=== PATIENT | male | born 1995 | race African-American/Black ===

== ENCOUNTER 2017-10-02 01:42 | Inpatient (IN) | payer OTHER ==
[~2017-10-02] VITALS: Ht 190.5 cm; Wt 79.5 kg
[2017-10-02 02:20] LABS: HEMATOCRIT 41.3 % (38.0-50.0); HEMOGLOBIN 14.3 G/DL (12.5-16.6); MCH 29.5 PG (29.0-34.0); MCHC 34.6 G/DL (30.0-36.0); MCV 85.2 FL (86-99); PLATELET COUNT 299 K/uL (156-360); RBC DIS.WIDTH-CV 16.2 % (11.8-14.6); RED BLOOD COUNT 4.85 M/uL (4.00-5.50); WHITE BLOOD COUNT 4.8 K/uL (4.1-10.2)
[2017-10-02 02:59] LABS: CHLORIDE 102 mEq/L (99-109); POTASSIUM 3.8 mEq/L (3.7-5.4); SODIUM 141 mEq/L (136-147)
[2017-10-02 03:01] LABS: GLUCOSE 75 mg/dL (70-99)
[2017-10-02 03:04] LABS: SERUM ETHYL ALCOHOL 185 mg/dL
[2017-10-02 03:05] LABS: CREATININE 1.1 mg/dL (0.6-1.3); GFR ESTIMATE (CALCULATED) > 59 mL/min/ (58.99-99999)
[2017-10-02 03:06] LABS: UREA NITROGEN (BUN) 11 mg/dL (9-23)
[2017-10-02 03:17] LABS: APPEARANCE CLEAR ((CLEAR)); BILIRUBIN NEGATIVE; BLOOD NEGATIVE; COLOR YELLOW ((YELLOW)); GLUCOSE (STRIP) NEGATIVE; KETONES NEGATIVE; LEUKOCYTES NEGATIVE; NITRITE NEGATIVE; PROTEIN (STRIP) 30; UCUL ADDED? NO
[2017-10-02 03:25] LABS: AMPHETAMINE NEGATIVE (500 ng/mL); BARBITURATES NEGATIVE (200 ng/mL); BENZODIAZEPINES NEGATIVE (150 ng/mL); BUPRENORPHINE NEGATIVE (10 ng/mL); COCAINE NEGATIVE (150 ng/mL); METHADONE NEGATIVE (200 ng/mL); METHAMPHETAMINE NEGATIVE (500 ng/mL); OPIATES (MORPHINE) NEGATIVE (100 ng/mL); OXYCODONE NEGATIVE (100 ng/mL); PHENCYCLIDINE NEGATIVE (25 ng/mL); PROPOXYPHENE NEGATIVE (300 ng/mL); THC CANNABINOIDS NEGATIVE (50 ng/mL); TRICYCLIC ANTIDEPRESSANTS NEGATIVE (300 ng/mL)
[2017-10-02 10:45] VITALS: BP 137/67
[2017-10-02 10:54] VITALS: BP 137/76
[2017-10-02 16:07] VITALS: BP 160/78
[2017-10-02 18:25] VITALS: BP 133/87
[2017-10-03 03:15] VITALS: BP 123/57
[2017-10-03 08:01] VITALS: BP 130/73
[2017-10-03 16:50] VITALS: BP 128/78
[2017-10-04 07:50] VITALS: BP 126/86
[2017-10-04] MEDS ORDERED: Thiamine,Vitamin B1 PO (09:37)
[2017-10-04] MEDS ORDERED: HYDROXYZINE PAM50 MG PO (09:37)
[2017-10-04] MEDS ORDERED: SERTRALINE HCL50 MG PO (09:37)
[2017-10-04] MEDS ORDERED: TRAZODONE HCL50 MG PO (09:37)
[2017-10-04] MEDS ORDERED: FOLIC ACID1 MG PO (09:37)
[2017-10-04] MEDS ORDERED: PRAZOSIN HCL1 MG PO (09:37)
[2017-10-04] MEDS ORDERED: PRAZOSIN HCL2 MG PO (09:55)
== END 2017-10-04 12:47 | disposition home or self-care (01) | DRG 885 ==
LOC: EME 01:42 → 1WEST 08:52 → EDOF 08:52 → ENRESERV 10:30 → 1WEST 10:40
PROVIDERS: Emergency Medicine
DX: F33.2 Major depressive disorder, recurrent severe without psychotic features (principal); R45.851 Suicidal ideations; F43.12 Post-traumatic stress disorder, chronic; F10.229 Alcohol dependence with intoxication, unspecified; Y90.6 Blood alcohol level of 120-199 mg/100 ml; F51.5 Nightmare disorder; G47.00 Insomnia, unspecified; F41.9 Anxiety disorder, unspecified; Z56.0 Unemployment, unspecified; F17.210 Nicotine dependence, cigarettes, uncomplicated
CPT/HCPCS: 80048; 81003; 85027; 90837; 99281; 99285; G0480; Q0169; Q0177

== ENCOUNTER 2017-10-21 23:25 | Emergency (ER) | payer OTHER ==
[~2017-10-21] VITALS: Ht 193 cm; Wt 77.7 kg
[~2017-10-21 23:25] MED LIST: FOLIC ACID1 MG PO; HYDROXYZINE PAM50 MG PO; PRAZOSIN HCL1 MG PO; PRAZOSIN HCL2 MG PO; SERTRALINE HCL50 MG PO; TRAZODONE HCL50 MG PO; Thiamine,Vitamin B1 PO
[2017-10-22 00:07] LABS: HEMATOCRIT 42.9 % (38.0-50.0); HEMOGLOBIN 15.2 G/DL (12.5-16.6); MCH 29.7 PG (29.0-34.0); MCHC 35.4 G/DL (30.0-36.0); PLATELET COUNT 244 K/uL (156-360); RBC DIS.WIDTH-CV 14.3 % (11.8-14.6); RBC DIS.WIDTH-SD 43.5 % (39-53); RED BLOOD COUNT 5.11 M/uL (4.00-5.50); WHITE BLOOD COUNT 5.6 K/uL (4.1-10.2)
[2017-10-22 00:20] LABS: ALBUMIN 4.9 g/dL (3.2-4.8); CHLORIDE 97 mEq/L (99-109); POTASSIUM 3.6 mEq/L (3.7-5.4); SODIUM 137 mEq/L (136-147)
[2017-10-22 00:22] LABS: GLUCOSE 77 mg/dL (70-99); TOTAL PROTEIN 8.5 g/dL (6.4-8.3)
[2017-10-22 00:24] LABS: TOTAL BILIRUBIN 1.6 mg/dL (0.0-1.0)
[2017-10-22 00:25] LABS: SERUM ETHYL ALCOHOL 45 mg/dL
[2017-10-22 00:26] LABS: ALKALINE PHOSPHATASE 117 IU/L (3-129); CREATININE 1.1 mg/dL (0.6-1.3); GFR ESTIMATE (CALCULATED) > 59 mL/min/ (58.99-99999)
[2017-10-22 00:27] LABS: UREA NITROGEN (BUN) 9 mg/dL (9-23)
[2017-10-22 00:28] LABS: AST (GOT) 43 IU/L (2-34)
[2017-10-22 00:29] LABS: ALT (GPT) 20 IU/L (3-49); LIPASE 37 U/L (1.0-51.0)
[2017-10-22] MEDS ORDERED: ZOFRAN4 MG PO (01:29)
[2017-10-22] MEDS ORDERED: PEPCID20 MG PO (01:29)
[2017-10-22 01:50] VITALS: BP 127/98
== END 2017-10-22 02:00 | disposition home or self-care (01) ==
LOC: EME 23:25
PROVIDERS: Emergency Medicine
DX: K29.00 Acute gastritis without bleeding (principal); J02.9 Acute pharyngitis, unspecified
CPT/HCPCS: 80053; 83690; 85027; 87651 90; 99281; 99284; G0480

== ENCOUNTER 2018-04-17 09:37 | Emergency (ER) | payer OTHER ==
[~2018-04-17] VITALS: Ht 190.5 cm; Wt 80.0 kg
[~2018-04-17 09:37] MED LIST changes: +PEPCID20 MG PO; +ZOFRAN4 MG PO
[2018-04-17 10:44] LABS: APPEARANCE CLEAR ((CLEAR)); BILIRUBIN NEGATIVE; BLOOD SMALL; COLOR STRAW ((YELLOW)); GLUCOSE (STRIP) NEGATIVE; KETONES NEGATIVE; LEUKOCYTES NEGATIVE; NITRITE NEGATIVE; PROTEIN (STRIP) NEGATIVE; SPECIFIC GRAVITY 1.003 (1.000-1.030); UROBILINOGEN 0.2 MG/DL (0.2-1.0)
[2018-04-17 10:47] LABS: BACTERIA RARE /HPF; CALCIUM OXALATE CRYSTALS 1+ /HPF; EPITHELIAL CELLS RARE /HPF; MUCUS NONE SEEN /LPF; RED BLOOD CELLS 0-5 /HPF (0-5); UCUL ADDED? NO; WHITE BLOOD CELLS 0-5 /HPF (0-5)
[2018-04-17 10:54] LABS: AMPHETAMINE NEGATIVE (500 ng/mL); BARBITURATES NEGATIVE (200 ng/mL); BENZODIAZEPINES NEGATIVE (150 ng/mL); BUPRENORPHINE NEGATIVE (10 ng/mL); COCAINE NEGATIVE (150 ng/mL); METHADONE NEGATIVE (200 ng/mL); METHAMPHETAMINE NEGATIVE (500 ng/mL); OPIATES (MORPHINE) NEGATIVE (100 ng/mL); OXYCODONE NEGATIVE (100 ng/mL); PHENCYCLIDINE NEGATIVE (25 ng/mL); PROPOXYPHENE NEGATIVE (300 ng/mL); THC CANNABINOIDS NEGATIVE (50 ng/mL); TRICYCLIC ANTIDEPRESSANTS NEGATIVE (300 ng/mL)
[2018-04-17 10:56] LABS: BASOPHIL (%) 0.5 % (0-1); EOSINOPHIL (%) 0 % (0-5); HEMATOCRIT 40.7 % (38.0-50.0); HEMOGLOBIN 14.4 G/DL (12.5-16.6); IMMATURE GRANULOCYTE (%) 0.3 % (0.0-0.7); LYMPHOCYTE (%) 21.9 % (15-42); LYMPHOCYTE COUNT 1.3 K/uL (1.0-2.8); MCH 29.8 PG (29.0-34.0); MCHC 35.4 G/DL (30.0-36.0); MCV 84.1 FL (86-99); MONOCYTE (%) 14.3 % (3-12); MONOCYTE COUNT 0.8 K/uL (0-0.8); NEUTROPHIL COUNT 3.7 K/uL (1.8-6.4); PLATELET COUNT 175 K/uL (156-360); RBC DIS.WIDTH-CV 14.7 % (11.8-14.6); RBC DIS.WIDTH-SD 44.7 % (39-53); RED BLOOD COUNT 4.84 M/uL (4.00-5.50); WHITE BLOOD COUNT 5.8 K/uL (4.1-10.2)
[2018-04-17 11:04] LABS: CHLORIDE 98 mEq/L (99-109); POTASSIUM 3.3 mEq/L (3.7-5.4); SODIUM 138 mEq/L (136-147)
[2018-04-17 11:06] LABS: GLUCOSE 94 mg/dL (70-99)
[2018-04-17 11:09] LABS: CREATININE 0.9 mg/dL (0.6-1.3); GFR ESTIMATE (CALCULATED) > 59 mL/min/ (58.99-99999)
[2018-04-17 11:11] LABS: UREA NITROGEN (BUN) 7 mg/dL (9-23)
[2018-04-17 14:01] VITALS: BP 151/89
== END 2018-04-17 14:36 | disposition home or self-care (01) ==
LOC: EME 09:37
PROVIDERS: Emergency Medicine
DX: F41.0 Panic disorder [episodic paroxysmal anxiety] (principal); F43.10 Post-traumatic stress disorder, unspecified; F32.9 Major depressive disorder, single episode, unspecified; F17.200 Nicotine dependence, unspecified, uncomplicated
CPT/HCPCS: 80048; 81003; 85025; 90839; 99281; 99284; G0480